=== PATIENT | female | born 1980 | race Caucasian/White ===

== ENCOUNTER 2017-01-31 14:44 | Emergency (ER) | payer SELFPAY ==
[2017-01-31 14:54] VITALS: BP 135/99
--- NOTE | 2017-01-31 15:58 | ER Document Report ---
ED Medical Screen (RME) - General Chief Complaint: Cough Stated Complaint: SHORTNESS OF BREATH Time Seen by Provider: 01/31/17 15:52 Mode of Arrival: Ambulatory Information source: Patient TRAVEL OUTSIDE OF THE [place] IN LAST 30 DAYS: No - HPI Patient complains to provider of: productive cough Onset: Other - pt with 2-3 day h/o cough productive of green/yellow sputum. She denies fever but continues to smoke - Related Data Allergies/Adverse Reactions: No Known Allergies Allergy (Unverified 01/31/17 14:53) Past Medical History - Social History Chew tobacco use (# tins/day): No Frequency of alcohol use: None Drug Abuse: None Renal/ Medical History: Denies: Hx Peritoneal Dialysis Surgical Hx: Negative - Immunizations Hx Diphtheria, Pertussis, Tetanus Vaccination: No Physical Exam - Vital signs Vitals: Temp Pulse Resp BP Pulse Ox 98.4 F 119 H 22 H 135/99 H 98 01/31/17 14:53 01/31/17 14:53 01/31/17 14:53 01/31/17 14:53 01/31/17 14:53 Course - Vital Signs Vital signs: Temp Pulse Resp BP Pulse Ox 98.4 F 119 H 22 H 135/99 H 98 01/31/17 14:53 01/31/17 14:53 01/31/17 14:53 01/31/17 14:53 01/31/17 14:53
--- NOTE | 2017-01-31 16:39 | RADIOLOGY REPORT (SQ) ---
EXAM DESCRIPTION: CHEST PA/LAT COMPLETED DATE/TIME: 01/31/2017 4:32 pm REASON FOR STUDY: productive cough COMPARISON: None. TECHNIQUE: Frontal and lateral radiographic views of the chest acquired. NUMBER OF VIEWS: Two view. LIMITATIONS: None. FINDINGS: LUNGS AND PLEURA: No opacities, masses or pneumothorax. No pleural effusion. MEDIASTINUM AND HILAR STRUCTURES: No masses or contour abnormalities. HEART AND VASCULAR STRUCTURES: Heart normal size. No evidence for failure. BONES: No acute findings. HARDWARE: None in the chest. OTHER: No other significant finding. IMPRESSION: NO SIGNIFICANT RADIOGRAPHIC FINDING IN THE CHEST. TECHNICAL DOCUMENTATION: JOB ID: [id number] [employer]- All Rights Reserved
[2017-01-31 16:54] LABS: ABSOLUTE BASOPHILS # (AUTO) 0.1 10^3/uL (0.0-0.2); ABSOLUTE EOSINOPHILS # (AUTO) 0.1 10^3/uL (0.0-0.6); ABSOLUTE LYMPHOCYTES (AUTO) 1.9 10^3/uL (0.5-4.7); ABSOLUTE MONOCYTES (AUTO) 1.3 10^3/uL (0.1-1.4); ABSOLUTE NEUT (AUTO) 14.8 10^3/uL (1.7-8.2); BASOPHILS % (AUTO) 0.6 % (0-2); EOSINOPHILS % (AUTO) 0.7 % (0-6); HEMATOCRIT 45.8 % (36.0-47.0); HEMOGLOBIN 15.6 g/dL (12.0-15.5); LYMPHOCYTES % (AUTO) 10.4 % (13-45); MEAN CORPUSCULAR HGB CONC 34.1 g/dL (32.0-36.0); MEAN CORPUSCULAR VOLUME 94 fl (80-97); MONOCYTES % (AUTO) 7.3 % (3-13); RED BLOOD COUNT 4.87 10^6/uL (3.72-5.28); RED CELL DISTRIBUTION WIDTH 13.6 % (11.5-14.0); WHITE BLOOD COUNT 18.3 10^3/uL (4.0-10.5)
[2017-01-31 17:09] LABS: ALANINE AMINOTRANSFERASE 28 U/L (9-52); ALBUMIN 4.5 g/dL (3.5-5.0); ALKALINE PHOSPHATASE 83 U/L (38-126); ANION GAP 13 (5-19); ASPARTATE AMINO TRANSFERASE 21 U/L (14-36); BILIRUBIN,DIRECT 0.3 mg/dL (0.0-0.4); BILIRUBIN,TOTAL 0.8 mg/dL (0.2-1.3); BLOOD UREA NITROGEN 11 mg/dL (7-20); CALCIUM 9.8 mg/dL (8.4-10.2); CARBON DIOXIDE 23 mmol/L (22-30); CHLORIDE 102 mmol/L (98-107); CREATININE RESULT 0.65 mg/dL (0.52-1.25); GLUCOSE 91 mg/dL (75-110); POTASSIUM 4.4 mmol/L (3.6-5.0); SODIUM 137.5 mmol/L (137-145); TOTAL PROTEIN 7.8 g/dL (6.3-8.2)
[2017-01-31] MEDS ORDERED: IPRATROPIUM/ALBUTEROL 0.5-2.5 MG/3 ML AMPUL NEB ONE (17:25)
[2017-01-31] MEDS ORDERED: METHYLPREDNISOLONE INJ 125 MG/2 ML SDV IM ONE (17:26)
--- NOTE | 2017-01-31 17:28 | ER Document Report ---
HPI - HPI Pain Level: 5 Context: Patient is a 36yo female who presents to the ED c/o productive cough and SOB x2 days. Pt states that she is a smoker. She has been using otc meds without any relief. Her cough is starting to make her throat hurt as well as lungs. She denies any history of asthma. Pt denies any fever, nasal nigel/discharge, ear pain, hemoptysis, CP, syncope, palpitations, abd pain, n/v/d, dysuria, or rash. - ROS Notes: REVIEW OF SYSTEMS: CONSTITUTIONAL : Denies fever, chills, or sweats. Denies recent illness. EENT: see hpi. CARDIOVASCULAR: Denies chest pain. Denies palpitations or racing or irregular heart beat. Denies ankle edema. RESPIRATORY: see hpi. GASTROINTESTINAL: Denies abdominal pain or distention. Denies nausea, vomiting , or diarrhea. Denies blood in vomitus, stools, or per rectum. Denies black, tarry stools. Denies constipation. GENITOURINARY: Denies difficulty urinating, painful urination, burning, frequency, blood in urine, or discharge. MUSCULOSKELETAL: Denies back or neck pain or stiffness. Denies joint pain or swelling. SKIN: Denies rash, lesions or sores. NEUROLOGICAL: Denies confusion or altered mental status. Denies passing out or loss of consciousness. Denies dizziness or lightheadedness. Denies headache. Denies weakness or paralysis or loss of use of either side. Denies problems with gait or speech. Denies sensory loss, numbness, or tingling. ALL OTHER SYSTEMS REVIEWED AND NEGATIVE. Dictation was performed using [employer] voice recognition software - CARDIOVASCULAR Cardiovascular: DENIES: Chest pain - DERM Skin Color: Normal Past Medical History - General Information source: Patient - Social History Smoking Status: Current Every Day Smoker Chew tobacco use (# tins/day): No Smoking Education Provided: Yes - <2mins Frequency of alcohol use: None Drug Abuse: None Family History: Reviewed & Not Pertinent Patient has suicidal ideation: No Patient has homicidal ideation: No Renal/ Medical History: Denies: Hx Peritoneal Dialysis Surgical Hx: Negative - Immunizations Hx Diphtheria, Pertussis, Tetanus Vaccination: No Vertical Provider Document - CONSTITUTIONAL Notes: PHYSICAL EXAMINATION: GENERAL: Well-appearing, well-nourished and in mild respiratory distress. HEAD: Atraumatic, normocephalic. EYES: Pupils equal round and reactive to light, extraocular movements intact, sclera anicteric, conjunctiva are normal. ENT: EAC clear b/l. TM's intact b/l without erythema, fluid, or perforation. Nares patent and without discharge. oropharynx clear without exudates. No tonsilar hypertrophy or erythema. Moist mucous membranes. No sinus tenderness. NECK: Normal range of motion, supple without lymphadenopathy. LUNGS: Wheezes throughout b/l. Mild rhonchi. No crackles. HEART: Regular rate and rhythm without murmurs, rubs, gallops. ABDOMEN: Soft, nontender, nondistended abdomen. No guarding, no rebound. No masses appreciated. Normal bowel sounds present. No CVA tenderness bilaterally. Extremities: No cyanosis, clubbing, or edema b/l. Peripheral pulses 2+. Capillary refill less than 3 seconds. You negative b/l. NEUROLOGICAL: Cranial nerves grossly intact. Normal speech, normal gait. Normal sensory, motor exams PSYCH: Normal mood, normal affect. SKIN: Warm, Dry, normal turgor, no rashes or lesions noted. - INFECTION CONTROL TRAVEL OUTSIDE OF THE [place] IN LAST 30 DAYS: No - RESPIRATORY O2 Sat by Pulse Oximetry: 98 Course - Re-evaluation Re-evalutation: Patient is a 36yo female who presents to the ED with c/o cough and sob. Vitals stable with rechecked pulse at 94 after 30mins upon initial visit with me. CXR was negative; although she had an elevated WBC with left shift. Pt was afebrile and well-hydrated. Lungs were wheezy throughout with mild rhonchi. A duoneb was given which improved the lung sounds; no more wheezing and rhonchi decreased. Patient expressed improvement in her sob and cough. Expressed to patient that I would treat her clinically for possible early pneumonia/bacterial infection with rocephin 1g IM and zithromax 1g PO, and send her home to finish the zithromax. Pt was in agreement until her came into the room. Within a few minutes of not receiving the medicine, pt came out of the room irritated and stated that she was going to leave because she did not want to wait any longer. The nurse had her sign AMA and she left without her d/c instructions and 2/3 of her medications. She did take the zithromax script, but did not wait for the prednisone and albuterol inhaler prescription. During the visit I did reiterate to the patient that if things were to worsen , that she would need to come back to the ED (i.e. cp, palp, syncope, sob, dyspnea, fever, ADAMS, abd pain, n/v). After performing a Medical Screening Examination, I estimate there is LOW risk for ACUTE CORONARY SYNDROME, RESPIRATORY FAILURE, SEPSIS OR MENINGITIS, thus I consider the discharge disposition reasonable. I have reevaluated this patient multiple times and no significant life threatening changes are noted. The patient and I have discussed the diagnosis and risks. We also discussed returning to the Emergency Department immediately if new or worsening symptoms occur. We have discussed the symptoms which are most concerning (e.g., changing or worsening pain, trouble swallowing or breathing, neck stiffness, fever) that necessitate immediate return. F/u: with pcm in 2-3 days for recheck, ED prn otherwise as above. 01/31/17 17:35 - Vital Signs Vital signs: Temp Pulse Resp BP Pulse Ox 98.4 F 119 H 22 H 135/99 H 98 01/31/17 14:53 01/31/17 14:53 01/31/17 14:53 01/31/17 14:53 01/31/17 14:53 - Laboratory Result Diagrams: 01/31/17 16:50 01/31/17 16:50 Laboratory results interpreted by me: 01/31/17 16:50 WBC 18.3 H Hgb 15.6 H Seg Neutrophils % 81.0 H Lymphocytes % 10.4 L Absolute Neutrophils 14.8 H Discharge - Discharge Clinical Impression: Cough, Shortness of breath Elevated WBC count Qualifiers: Leukocytosis type: unspecified Qualified Code(s): D72.829 - Elevated white blood cell count, unspecified Condition: Stable Disposition: AGAINST MEDICAL ADVICE Additional Instructions: Pneumonia Your examination indicates that you may have pneumonia. This is an infection of the lung tissue, usually caused by bacteria or a virus. Symptoms include cough, fever, shaking chills, chest pain, shortness of breath, and coughing up bloody sputum. Treatment for bacterial pneumonia includes rest, antibiotics, increasing your clear liquid intake, a cool mist humidifier at your bedside, and fever medication. Often, a repeat chest X-ray is performed in a few weeks--even if you feel better--to ascertain whether the infection has completely resolved and no underlying lung problem is present. You should call the physician if you develop persistent vomiting, high fever that does not respond to fever medication, increasing shortness of breath , confusion, or lethargy. Also, failure to improve within two to three days is an indication for re-examination. After performing a Medical Screening Examination, I estimate there is LOW risk for ACUTE CORONARY SYNDROME, RESPIRATORY FAILURE, SEPSIS OR MENINGITIS, thus I consider the discharge disposition reasonable. I have reevaluated this patient multiple times and no significant life threatening changes are noted. The patient and I have discussed the diagnosis and risks, and we agree with discharging home with close follow-up. We also discussed returning to the Emergency Department immediately if new or worsening symptoms occur. We have discussed the symptoms which are most concerning (e.g., changing or worsening pain, trouble swallowing or breathing, neck stiffness, CP, palpitations, abdominal pain, fever) that necessitate immediate return. Establish with a PCM and get checked in 2-3 days. Take medication as directed Prescriptions: Albuterol Sulfate [Proair HFA Inhalation Aerosol 8.5 gm MDI] 2 puff IH Q4H PRN # 1 mdi PRN Reason: Azithromycin [Zithromax 250 mg Tablet] 250 mg PO ASDIR PRN #6 tablet PRN Reason: Methylprednisolone [Medrol Dosepack (4 mg/Tab) 21 Tab/Dosepak] 4 mg PO ASDIR PRN #21 tab.ds.pk PRN Reason: Referrals: [facility] [Provider Group] - Follow up as needed
[2017-01-31] MEDS ORDERED: CEFTRIAXONE INJ 1000 MG VIAL IM ONE (18:45)
[2017-01-31] MEDS ORDERED: AZITHROMYCIN 250 MG TABLET PO ONE (18:45)
== END 2017-01-31 19:27 | disposition left against medical advice (07) ==
LOC: ER 14:44
DX: R05 Cough (principal); R06.02 Shortness of breath; D72.829 Elevated white blood cell count, unspecified; R06.2 Wheezing; F17.200 Nicotine dependence, unspecified, uncomplicated
CPT/HCPCS: 94640; 99285; 96372; 36415; 85025; 80053; 71020; J2930; J7620

== ENCOUNTER 2019-04-10 11:17 | Emergency (ER) | payer SELFPAY ==
--- NOTE | 2019-04-10 11:38 | ER Document Report ---
HPI - HPI Time Seen by Provider: 04/10/19 11:37 Pain Level: 4 Notes: Patient is an otherwise healthy 38-year-old female presenting to the emergency department with complaints of thoracic back pain. Patient reports she was feeling fine until she bent over at work and when she went to stand back up she had sudden onset pain between her scapula. She denies any shortness of breath but does report there is pain in her back when she takes a deep breath. Patient denies any direct trauma to the area. She is a smoker but does not take any oral contraceptives has never had a DVT or PE and has not had any recent travel. - REPRODUCTIVE Reproductive: DENIES: : Past Medical History - General Information source: Patient - Social History Smoking Status: Current Every Day Smoker Frequency of alcohol use: None Drug Abuse: None Family History: Reviewed & Not Pertinent - Medical History Medical History: Negative Renal/ Medical History: Denies: Hx Peritoneal Dialysis Surgical Hx: Negative - Immunizations Hx Diphtheria, Pertussis, Tetanus Vaccination: No Vertical Provider Document - CONSTITUTIONAL Notes: PHYSICAL EXAMINATION: GENERAL: Well-appearing, well-nourished and in moderate distress. HEAD: Atraumatic, normocephalic. EYES: Pupils equal round and reactive to light, extraocular movements intact, conjunctiva are normal. ENT: Nares patent, oropharynx clear without exudates. Moist mucous membranes. NECK: Normal range of motion, supple without lymphadenopathy LUNGS: Breath sounds clear to auscultation bilaterally and equal. No wheezes rales or rhonchi. HEART: Regular rate and rhythm without murmurs ABDOMEN: Soft, nontender, nondistended abdomen. No guarding, no rebound. No masses appreciated. Female : deferred Musculoskeletal: Tenderness to palpation across thoracic and scapular area. No vertebral tenderness, step-off or deformity. Tenderness is most significant in the paraspinous areas. NEUROLOGICAL: Cranial nerves grossly intact. Normal speech,. Normal sensory, motor exams PSYCH: Normal mood, normal affect. SKIN: Warm, Dry, normal turgor, no rashes or lesions noted. - INFECTION CONTROL TRAVEL OUTSIDE OF THE [place] IN LAST 30 DAYS: No Course - Re-evaluation Re-evalutation: Otherwise healthy 38-year-old female presenting in acute pain. Due to the fact that this was sudden onset pain after bending over and standing back up I feel it is most likely musculoskeletal strain. She is PERC and Wells negative. A CT of her chest was obtained and showed no acute findings. I did give her IV Valiu m which provided moderate reduction of her pain I then gave her 0.5 mg of IV Dilaudid which made the pain much more tolerable. Patient reports the pain is worse with movement and with deep breaths. Again she has no risk factors for pulmonary embolism other than smoking but has no history and is PERC negative. Her vital signs are within normal limits, she has no tachycardia or hypoxia. She is feeling much better and I will discharge her home in stable condition. We did discuss strict ED return precautions. Patient verbalized understanding and agreement with same. Her is here to drive her home. The patient's emergency department workup and current diagnosis were explained to the patient and or family. Follow-up instructions were provided. Medications if prescribed were discussed. Instructions for when to return to the emergency department including specific worrisome symptoms were discussed with the patient and/or family. - Vital Signs Vital signs: Temp Pulse Resp BP Pulse Ox 97.9 F 95 16 126/77 H 98 04/10/19 11:30 04/10/19 11:30 04/10/19 11:30 04/10/19 11:30 04/10/19 11:30 Discharge - Discharge Clinical Impression: Thoracic musculoskeletal strain Condition: Stable Disposition: HOME, SELF-CARE Additional Instructions: The CAT scan of your chest and back was negative. Your symptoms are most consistent with a musculoskeletal strain or muscle spasm. Please take the pain medication and muscle relaxers as prescribed. You may also take ibuprofen 600 mg every 6 hours and I suggested doing so as this will help with inflammation. He may alternate ice and heat to the area. Return to the emergency department with any new or worsening symptoms. Prescriptions: Cyclobenzaprine HCl [Flexeril 10 mg Tablet] 10 mg PO TIDP PRN #20 tab PRN Reason: Hydrocodone Bit/Acetaminophen [Hydrocodon-Acetaminophen 5-325] 1 each PO Q4H #12 tablet Forms: Return to Work
[2019-04-10] MEDS ORDERED: DIAZEPAM INJ 10 MG/2 ML DISP.SYRIN IV ONE (11:43)
--- NOTE | 2019-04-10 12:30 | RADIOLOGY REPORT (SQ) ---
EXAM DESCRIPTION: CT CHEST WITHOUT COMPLETED DATE/TIME: 04/10/2019 12:14 pm REASON FOR STUDY: sob, thoracic back pain COMPARISON: None. TECHNIQUE: CT scan performed of the chest without intravenous contrast. Images reviewed with lung, soft tissue and bone windows. Reconstructed coronal and sagittal MPR images reviewed. All images st ored on PACS. All CT scanners at this facility use dose modulation, iterative reconstruction, and/or weight based d osing when appropriate to reduce radiation dose to as low as reasonably achievable (ALARA). [facility]: Dose Right [facility]: CareDose [facility]: Dose Right [facility]: Teradose 4D [facility]: CareCentrix RADIATION DOSE: CT Rad equipment meets quality standard of care and radiation dose reduction techniq ues were employed. CTDIvol: 10.2 mGy. DLP: 356 mGy-cm. mGy. LIMITATIONS: No technical limitations. FINDINGS: LUNGS AND PLEURA: No masses, infiltrates, or pneumothorax. No pleural effusions or pleura l calcifications. HILAR AND MEDIASTINAL STRUCTURES: No identified masses or abnormal nodes. No obvious aneurysm. HEART AND VASCULAR STRUCTURES: No aneurysm. No pericardial effusion. UPPER ABDOMEN: No significant findings. Limited exam. THYROID AND OTHER SOFT TISSUES: No masses. No adenopathy. BONES: No significant finding. HARDWARE: None in the chest. OTHER: No other significant findings. IMPRESSION: NO SIGNIFICANT FINDING ON NON-CONTRASTED CHEST CT. TECHNICAL DOCUMENTATION: JOB ID: [id number] Quality ID # [id number]: Final reports with documentation of one or more dose reduction techniques (e.g., Au tomated exposure control, adjustment of the mA and/or kV according to patient size, use of iterative reconstruction technique) 2010 [employer]- All Rights Reserved Reading location - IP[facility]workstation name: [email or web address]
[2019-04-10] MEDS ORDERED: HYDROMORPHONE HCL INJ/PF 2 MG/ML AMPULE IV ONE (12:56)
[2019-04-10 13:52] VITALS: BP 134/99
== END 2019-04-10 13:52 | disposition home or self-care (01) ==
LOC: ER 11:17
DX: S29.012A Strain of muscle and tendon of back wall of thorax, initial encounter (principal); R07.1 Chest pain on breathing; X58.XXXA Exposure to other specified factors, initial encounter; F17.200 Nicotine dependence, unspecified, uncomplicated
CPT/HCPCS: 71250; J3360; J1170; 96374; 96375; 99284